=== PATIENT | male | born 1990 | race Caucasian/White ===

== ENCOUNTER 2020-06-25 18:50 | Emergency (ER) | payer SELFPAY ==
[2020-06-25 18:53] VITALS: BP 135/98; PULSE 95; RESP 20; TEMP 35.9; O2SAT 100; BMI 24.7
--- NOTE | 2020-06-25 19:47 | CT_ITS ---
STUDY: CT CHEST WITHOUT CONTRAST REASON FOR EXAM: Male, 30 years old. PT WAS WRESTLING COUSIN ON [place] AND HEARD A POP IN UPPER RIGHT RIBS. HAVING PAIN SINCE RADIATION DOSAGE (If Supplied By Facility): CTDIvol = ( 10.65 ) mGy, DLP = ( 402.03 ) mGycm TECHNIQUE: Transaxial imaging was performed without the administration of intravenous contrast material. Individualized dose optimization techniques were used for this CT. COMPARISON: None. FINDINGS: The lungs are normal. There is no demonstrated pleural abnormality. Normal heart and pericardium. Normal mediastinum. Normal hilar regions. Normal unenhanced pulmonary arteries. Normal aorta arch and descending thoracic aorta. Normal osseous structures. There is no demonstrated abnormality of the visualized upper abdomen. CT/Chest without Contrast IMPRESSION: No evidence of acute cardiopulmonary process or evidence of osseous fracture. Electronically Signed: Scooter Ernandez DO at 20:13 EST , Service support ,
[2020-06-25 20:30] VITALS: BP 127/94; PULSE 69; RESP 15; O2SAT 98
--- NOTE | 2020-06-25 20:30 | ED.DCSUM_ITS ---
History of Present Illness Chief Complaint: Chest Other Informant: Patient Narrative: She states that over the holiday he was wrestling and felt a couple pops the right lateral aspect of his chest. He thought it was more of a muscle strain but it has persisted and not resolved. He is worried about a broken rib. No hemoptysis. No shortness of breath. No bruising. Past Medical History - Allergies and Home Meds Allergies/Adverse Reactions: Allergies Penicillins Allergy (Verified 06/25/20 18:52) PT UNSURE OF REACTION Primary Care Physician: Ayleen Galeana MD [STAFF PHYSICIAN] - 10-14 Days if not better Smoking Status: Never smoker Review of Systems General: Denies: Chills, Fever, Sweats Eyes: Denies: Visual changes - bilaterally, Diplopia ENT: Denies: Rhinorrhea, Sore throat Cardiovascular: Reports: Chest pain. Denies: Palpitations Respiratory: Denies: Dyspnea, Cough, Dyspnea on exertion Gastrointestinal: Denies: Abdominal pain, Nausea, Vomiting, Diarrhea, Melena, H ematochezia Genitourinary: Denies: Dysuria, Hematuria, Frequency Musculoskeletal: Denies: Back pain, Extremity Pain Skin: Denies: Rash, Wounds Neurological: Denies: Headache, Weakness, Numbness Physical Exam Vital Signs/Narrative: Vital Signs Temp Pulse Resp BP Pulse Ox 06/25/20 18:53 96.7 F L 95 20 H 135/98 H 100 Inital Vital Signs reviewed: Yes General: Well nourished, Well developed, No Acute Distress Head: Normocephalic, Atraumatic Eyes: Perrl, EOMI ENT: Moist mucous membranes, No rhinorrhea Neck: Supple, Nontender Cardiovascular: Regular rate, Regular rhythm, No murmurs Respiratory: No distress, CTA bilaterally, Chest tenderness - Under to palpation mid axillary line just in line with the nipple extending anteriorly. No ecchymosis noted Abdomen: Soft, Nontender, Nondistended, Normal bowel sounds Back: Nontender, Normal Inspection Extremities: Nontender, No edema Skin: Normal color, No rash Neurological: Alert, Oriented x3, Cranial nerves II-XII grossly intact, Normal Strength, Normal Sensation Psychological: Normal affect, Normal Mood Diagnostic/Tx/Re-eval Clinical Impression(s) from Imaging Studies Chest CT 06/25/20 19:47 IMPRESSION: No evidence of acute cardiopulmonary process or evidence of osseous fracture. Electronically Signed: Scooter ErnandezDO at 20:13 EST , Service support , - Medical Decision Making Patient will be discharged home with supportive care and conservative treatment. I suspect a chest wall strain. ED Disposition - Plan for ED Patient: Disposition: Home or Assisted Living Diagnosis: Chest wall muscle strain Instructions: ED Strain Chest Wall Referrals: Ayleen Galeana MD [STAFF PHYSICIAN] - 10-14 Days if not better
== END 2020-06-25 20:37 | disposition home or self-care (01) ==
PROVIDERS: Emergency Provider Emergency Medicine
DX: S29.011A Strain of muscle and tendon of front wall of thorax, initial encounter (principal); X58.XXXA Exposure to other specified factors, initial encounter; Y93.72 Activity, wrestling; Y92.9 Unspecified place or not applicable; Y99.9 Unspecified external cause status
CPT/HCPCS: 71250; 99282

== ENCOUNTER 2021-04-02 10:40 | Emergency (ER) | payer MEDICARE, SELFPAY ==
[2021-04-02 10:41] VITALS: BP 129/90; PULSE 94; RESP 15; TEMP 37.2; O2SAT 98; BMI 23.7
--- NOTE | 2021-04-02 11:45 | EDS_ITS ---
HPI HPI - URI History of Present Illness Chief Complaint: Headache Narrative Narrative: 30-year-old male with no reported medical history presenting with a cough x1 week, chills, body aches, loss of taste but not smell. Patient reports that several of his coworkers tested positive for Covid however he tested negative. Patient presents today with a headache as well. He states that he has been laying around in bed and has not been eating. He is able to drink fluids. He states he is having normal urine output and bowel movements even though is not eating. He denies abdominal pain. Patient denies chest pain or shortness of breath. Patient does state that his lower back hurts from laying around all week. He denies any trauma. No loss of bladder or bowel control. No paresthesias. ROS ROS ED Constitutional Constitutional ED: Reports chills; Denies fever(s) Eyes Eyes: Denies blurry vision or diplopia ENT ENT ED: Denies rhinorrhea or sore throat Cardiovascular Cardiovascular: Denies chest pain or palpitations Respiratory/Chest Respiratory/Chest: Reports cough; Denies sputum Gastrointestinal Gastrointestinal: Denies abdominal pain, constipation, diarrhea, nausea or vomiting Genitourinary Genitourinary ED: Denies dysuria or hematuria Musculoskeletal Musculoskeletal: Reports back pain and myalgias; Denies arthralgias or neck pain Integumentary Denies Abrasions or rash Neurologic Neurologic: Reports headache(s); Denies paresthesias or weakness PFSH PFSH Medical History no medical history Home Medications NK 06/25/20 [History Last Taken Unknown] Allergy/AdvReac Type Severity Reaction Status Date / Time Penicillins Allergy PT UNSURE Verified 04/02/21 10:41 OF REACTION Social History Smoking Status: Never smoker EXAM Physical Exam Const Vital Signs: 04/02/21 10:41 04/02/21 12:59 Temperature 99.0 F Temperature Source Temporal Pulse Rate 94 86 Respiratory Rate 15 15 Blood Pressure 129/90 H 109/78 Blood Pressure Mean 103 Pulse Ox 98 98 Oxygen Delivery Method Room Air Positive well nourished General Appearance ED: NAD; Negative for pallor HEENT Reports moist mucous membranes normocephalic and atraumatic Eyes PERRL and EOMs intact bilaterally Neck supple and no meningeal signs Resp normal respiratory effort and clear to auscultation bilaterally Cardio Rate: regular rate Rhythm: regular rhythm Neuro oriented x3 and CN's II-XII intact bilaterally Sensorium / Orientation: alert Psych mental status grossly normal Skin General Skin Exam: Negative for jaundice or pallor MDM MDM MDM Narrative Medical decision making narrative: Patient presenting with viral symptoms of cough, generalized fatigue, body aches and chills. He has not had a known fever. He also complains of a headache. Patient was given Reglan and Benadryl and his headache did improve. Patient was not having chest pain or shortness of breath but I did check basic lab work. His CBC does show that he is leukopenic however he is not lymphopenic. Renal function and electrolytes are normal. Chest x-ray on my interpretation shows no acute cardiopulmonary process and the radiologist does agree. Patient's Covid testing was positive today. He does not require home oxygen. He does not qualify for monoclonal antibodies. Impression: 1. COVID-19 pneumonitis 2. Headache Lab Data Attestation: I reviewed the patient's lab results. Labs: Laboratory Results - last 24 hr 04/02/21 04/02/21 04/02/21 11:50 11:55 11:55 WBC 3.1 L RBC 5.54 Hgb 15.8 Hct 46.0 MCV 83.0 MCH 28.5 MCHC 34.3 RDW Std Deviation 38.5 RDW Coeff of Sky 12.6 Plt Count 175 MPV 9.9 Immature Gran % (Auto) 0.000 Neut % (Auto) 34.1 L Lymph % (Auto) 52.4 H [place] % (Auto) 13.2 H Eos % (Auto) 0.0 Baso % (Auto) 0.3 Absolute Neuts (auto) 1.1 L Absolute Lymphs (auto) 1.63 Nucleated RBC % 0 Sodium 137 Potassium 3.9 Chloride 102 Carbon Dioxide 29.0 Anion Gap 6 BUN 12 Creatinine 1.16 Estim Creat Clear Calc 100.08 Est GFR (MDRD) Af Amer 95 Est GFR (MDRD) Non-Af 79 BUN/Creatinine Ratio 10.3 Glucose 89 Calcium 8.6 COVID-19 (SRAVAN) Detected Radiography Diagnostic Testing: Clinical Impression(s) from Imaging Studies Chest X-Ray 04/02/21 12:08 IMPRESSION: Normal x-ray examination of the chest. Electronically Signed: Hima Rogers MD at 12:30 EDT Tel , Service support , Discharge Plan Triage Chief Complaint: Headache ED Provider: Leopoldo Anne Dx/Rx/DC Orders Instructions: ED Headache Unspecified, ED Viral Syndrome (Adult) Prescriptions: No Action NK RF: 0 Primary Care Provider: Care Physician,No Primary Referrals: Christina Burciaga MD [STAFF PHYSICIAN] - As Needed Care Physician,No Primary [Primary Care Provider] - Disposition Disposition: Home, Self Care Discharge Date/Time: 04/02/21 13:00
--- NOTE | 2021-04-02 12:08 | RAD_ITS ---
STUDY: X-RAY CHEST REASON FOR EXAM: Male, 30 years old. cough TECHNIQUE: Single AP portable view of the chest. COMPARISON: None. FINDINGS: The lungs are clear and expanded. There is no demonstrated pleural abnormality. Normal size heart. Normal mediastinum and erica. Normal visualized pulmonary arteries. Normal visualized aortic arch and descending thoracic aorta. Normal visualized thoracic spine. Normal visualized ribs, clavicles, and shoulders. There is no demonstrated abnormality of the visualized soft tissue structures of the upper abdomen. RAD/Chest 1 View (Portable) IMPRESSION: Normal x-ray examination of the chest. Electronically Signed: Hima Rogers MD at 12:30 EDT Tel , Service support ,
[2021-04-02 12:13] LABS: Anion Gap 6 (5-15); BUN 12 mg/dL (7-18); BUN/Creat Ratio 10.3 RATIO (10-20); Calcium,Total 8.6 mg/dL (8.5-10.1); Chloride 102 mmol/L (98-107); Creatinine, Serum 1.16 mg/dL (0.70-1.30); EST Glomerular Filtration Rate 79 mL/min (>60); Est Glom Filt Rate - Afr Amer 95 mL/min (>60); Estimated Creatinine Clearance 100.08 ml/min; Glucose 89 mg/dL (74-106); Potassium 3.9 mmol/L (3.5-5.1); Sodium Level 137 mmol/L (136-145)
[2021-04-02 12:22] LABS: Absolute Lymphocyte Count 1.63 X10^3/uL (0.83-4.51); Absolute Neutrophil Count 1.1 X10^3/uL (2.0-7.7); Basophil# 0.01 X10^3/uL; Basophil% 0.3 % (0-1); Hemoglobin 15.8 g/dL (13.0-16.5); Lymphocyte # 1.63 X10^3/ul (0.83-4.51); Lymphocyte % 52.4 % (19-41); Mean Corp Hgb Conc 34.3 g/dL (32-36); Mean Corpuscular Hgb 28.5 pg (27.0-32.0); Mean Platelet Vol. 9.9 fl (6.2-12.0); Monocyte# 0.41 X10^3/uL; Monocyte% 13.2 % (0-10); NRBC Flagged by Analyzer 0 % (0-5); Neutrophil # 1.06 X10^3/uL (2.7-7.7); Neutrophil % 34.1 % (47-70); Platelet Count 175 K/mm3 (150-450); RBC Distribution Width CV 12.6 % (11.6-14.6); RBC Distribution Width SD 38.5 fl (35.1-43.9); Red Blood Count 5.54 M/mm3 (4.6-6.2); White Blood Count 3.1 K/mm3 (4.4-11.0)
[2021-04-02] MEDS: DiphenhydrAMINE 50 MG/ML Syringe 25 MG IV (12:22)
[2021-04-02] MEDS: Metoclopramide 10 MG/2 ML Vial IV (12:22)
[2021-04-02 12:59] VITALS: BP 109/78; PULSE 86; RESP 15; O2SAT 98
== END 2021-04-02 13:00 | disposition home or self-care (01) ==
PROVIDERS: Emergency Provider Student in an Organized Health Care Education/Training Program
DX: U07.1 COVID-19 (principal); J12.82 Pneumonia due to coronavirus disease 2019
CPT/HCPCS: 71045; 80048; 85025; 87635; 96374; 96375; 99283; U0005; A4216; U0003